=== PATIENT | female | born 1990 | race Caucasian/White ===

== ENCOUNTER 2016-10-18 19:01 | Inpatient (IN) | payer BC ==
[~2016-10-18] VITALS: Ht 177.8 cm; Wt 97.5 kg
[~2016-10-18 19:01] MED LIST: BUPIVACAINE 0.25% PF 10ML EPIDURAL ONE
[2016-10-18] MEDS ORDERED: PROMETHAZINE 25 MG/ML VIAL IV PRN (19:25)
[2016-10-18] MEDS ORDERED: FAMOTIDINE 20 MG INJ IV PRN (19:25)
[2016-10-18] MEDS ORDERED: ACETAMINOPHEN 325 MG TAB PO PRN (19:25)
[2016-10-18] MEDS ORDERED: FAMOTIDINE 20 MG TAB PO PRN (19:25)
[2016-10-18] MEDS ORDERED: ALU/MAG/SIM 30 ML UDC PO PRN (19:25)
[2016-10-18] MEDS ORDERED: TERBUTALINE 1 MG/ML VIAL SUBQ PRN (19:25)
[2016-10-18] MEDS ORDERED: LIDOCAINE 1% 30 ML PF INFILTRATE ONE (19:25)
[2016-10-18] MEDS ORDERED: METOCLOPRAMIDE 10 MG/2 ML VIAL IV PUSH PRN (19:25)
[2016-10-18] MEDS ORDERED: ONDANSETRON 4 MG VIAL IV PRN (19:25)
[2016-10-18] MEDS ORDERED: CEFAZOLIN (LD/OB) 100 ML IV PRN (19:25)
[2016-10-18] MEDS ORDERED: LIDOCAINE 1% BUFFERED 1 ML SYR INTRADERM PRN (19:25)
[2016-10-18 20:00] VITALS: Ht 177.8 cm; Wt 97.5 kg
[2016-10-18] MEDS: LACT RINGERS 1,000 ML IV SCH ×2 (20:00→23:37)
[2016-10-18] MEDS ORDERED: ROPIV/FENT 0.2%-2MCG/ML 100 ML EPIDURAL ONE (22:20)
[2016-10-18] MEDS ORDERED: FENTANYL 100 MCG/2 ML AMP ONE (22:21)
[2016-10-18] MEDS ORDERED: OXYTOCIN 15 UNITS/250 ML NS 250 ML IV SCH (23:00)
[2016-10-19] VITALS (10 sets, daily range): BP systolic 115–139; RESP 18–20; TEMP 98–98.3
[2016-10-19] MEDS ORDERED: MEASLES,MUMPS,RUBELLA VAC SUBQ.VACC ONE (04:25)
[2016-10-19] MEDS ORDERED: OXYCODONE/APAP 5/325 TAB PO PRN (04:25)
[2016-10-19] MEDS ORDERED: DERMOPLAST SPRAY TOPICAL PRN (04:25)
[2016-10-19] MEDS ORDERED: MAG HYDROX 30 ML UDC PO PRN (04:25)
[2016-10-19] MEDS ORDERED: ASTRINGENT MED PADS 40'S TOPICAL PRN (04:25)
[2016-10-19] MEDS ORDERED: TDaP 0.5 ML VIAL IM.VACC ONE (04:25)
[2016-10-19] MEDS ORDERED: OXYTOCIN 15 UNITS/250 ML NS 250 ML IV SCH (04:25)
[2016-10-19] MEDS ORDERED: ZOLPIDEM 5 MG TAB PO PRN (04:25)
[2016-10-19] MEDS ORDERED: BISACODYL 10 MG SUPP RECTAL PRN (04:25)
[2016-10-19] MEDS: OXYTOCIN 15 UNITS/250 ML NS 250 ML IV SCH ×2 (04:30→06:12)
[2016-10-19] MEDS: Ibuprofen 600 MG TAB PO SCH ×4 (06:23→23:55)
[2016-10-19] MEDS: DOCUSATE SOD 100 MG CAP PO SCH (09:36)
[2016-10-20 01:50] VITALS: BP_SYST 129; RESP 18; TEMP 97.3
[2016-10-20 05:41] VITALS: BP_SYST 132; RESP 16; TEMP 98.1
[2016-10-20] MEDS: Ibuprofen 600 MG TAB PO SCH ×2 (06:08→12:11)
[2016-10-20] MEDS ORDERED: Flu Vaccine Quadrivalent 60 MCG/0.5 ML IM.VACC ONE (08:20)
[2016-10-20] MEDS: DOCUSATE SOD 100 MG CAP PO SCH (08:54)
[2016-10-20 10:49] VITALS: BP_SYST 132; RESP 16; TEMP 98.1
[2016-10-20 13:22] VITALS: BP_SYST 122; TEMP 98
[2016-10-20 13:23] VITALS: RESP 18
== END 2016-10-20 13:50 | disposition home or self-care (01) | DRG 775 ==
LOC: LDOP 19:01 → LD 19:49 → OB 10-19 07:30
PROVIDERS: ADMIT Obstetrics & Gynecology; ATTEND Obstetrics & Gynecology
PROC: 10907ZC Drainage of Amniotic Fluid, Therapeutic from Products of Conception, Via Natural or Artificial Opening (ICD-10-PCS; 2016-10-18)
PROC: 10E0XZZ Delivery of Products of Conception, External Approach (ICD-10-PCS; principal; 2016-10-19)
PROC: 0HQ9XZZ Repair Perineum Skin, External Approach (ICD-10-PCS; 2016-10-19)
DX: O70.0 First degree perineal laceration during delivery (principal); Z37.0 Single live birth; Z3A.39 39 weeks gestation of pregnancy
CPT/HCPCS: 82803; 85014; 85018; 85025; 86850; 86870; 86900; 86901; 86970; 90471